=== PATIENT | male | born 1935 | race Caucasian/White ===

== ENCOUNTER → 2016-07-15 | Outpatient (CLI) | payer OTHER, MEDICARE | LOC: HYPER 06:58 | DX: R21 Rash and other nonspecific skin eruption (principal); I25.10 Atherosclerotic heart disease of native coronary artery without angina pectoris; I10 Essential (primary) hypertension; E78.00 Pure hypercholesterolemia, unspecified; R60.0 Localized edema; F15.90 Other stimulant use, unspecified, uncomplicated; Z72.89 Other problems related to lifestyle; Z95.1 Presence of aortocoronary bypass graft ==

== ENCOUNTER → 2016-11-05 | Outpatient (CLI) | payer OTHER, MEDICARE | LOC: HYPER 06:54 | DX: I87.332 Chronic venous hypertension (idiopathic) with ulcer and inflammation of left lower extremity (principal); L97.821 Non-pressure chronic ulcer of other part of left lower leg limited to breakdown of skin; R21 Rash and other nonspecific skin eruption; I25.10 Atherosclerotic heart disease of native coronary artery without angina pectoris; E78.00 Pure hypercholesterolemia, unspecified; Z95.1 Presence of aortocoronary bypass graft; Z72.89 Other problems related to lifestyle ==

== ENCOUNTER → 2016-11-24 | Outpatient (CLI) | payer OTHER, MEDICARE | LOC: HYPER 06:58 | DX: I87.332 Chronic venous hypertension (idiopathic) with ulcer and inflammation of left lower extremity (principal); L97.821 Non-pressure chronic ulcer of other part of left lower leg limited to breakdown of skin; I25.10 Atherosclerotic heart disease of native coronary artery without angina pectoris; E78.00 Pure hypercholesterolemia, unspecified; I70.248 Atherosclerosis of native arteries of left leg with ulceration of other part of lower leg; Z95.1 Presence of aortocoronary bypass graft; Z72.89 Other problems related to lifestyle ==

== ENCOUNTER → 2017-01-04 | Outpatient (CLI) | payer OTHER, MEDICARE | LOC: HYPER 12-23 07:26 | DX: I87.332 Chronic venous hypertension (idiopathic) with ulcer and inflammation of left lower extremity (principal); L97.821 Non-pressure chronic ulcer of other part of left lower leg limited to breakdown of skin; I25.10 Atherosclerotic heart disease of native coronary artery without angina pectoris; Z95.1 Presence of aortocoronary bypass graft; Z72.89 Other problems related to lifestyle ==

== ENCOUNTER → 2017-03-17 | Outpatient (CLI) | payer OTHER, MEDICARE | LOC: HYPER 03-03 15:41 | DX: L89.892 Pressure ulcer of other site, stage 2 (principal); I25.10 Atherosclerotic heart disease of native coronary artery without angina pectoris; I10 Essential (primary) hypertension; E78.00 Pure hypercholesterolemia, unspecified; R54 Age-related physical debility; Z95.1 Presence of aortocoronary bypass graft; Z72.89 Other problems related to lifestyle ==

== ENCOUNTER → 2017-06-15 | Outpatient (CLI) | payer OTHER, MEDICARE | LOC: HYPER 06:55 | DX: L97.821 Non-pressure chronic ulcer of other part of left lower leg limited to breakdown of skin (principal); L89.892 Pressure ulcer of other site, stage 2; I87.2 Venous insufficiency (chronic) (peripheral); I10 Essential (primary) hypertension; I25.10 Atherosclerotic heart disease of native coronary artery without angina pectoris; Z95.1 Presence of aortocoronary bypass graft ==

== ENCOUNTER → 2017-07-07 | Outpatient (CLI) | payer OTHER, MEDICARE | LOC: HYPER 06:45 | DX: I87.332 Chronic venous hypertension (idiopathic) with ulcer and inflammation of left lower extremity (principal); L97.821 Non-pressure chronic ulcer of other part of left lower leg limited to breakdown of skin; I70.249 Atherosclerosis of native arteries of left leg with ulceration of unspecified site; I25.10 Atherosclerotic heart disease of native coronary artery without angina pectoris; Z95.1 Presence of aortocoronary bypass graft ==

== ENCOUNTER → 2017-07-28 | Outpatient (CLI) | payer OTHER, MEDICARE | LOC: HYPER 06:47 | DX: I87.332 Chronic venous hypertension (idiopathic) with ulcer and inflammation of left lower extremity (principal); L97.821 Non-pressure chronic ulcer of other part of left lower leg limited to breakdown of skin; L89.151 Pressure ulcer of sacral region, stage 1; I10 Essential (primary) hypertension; I25.10 Atherosclerotic heart disease of native coronary artery without angina pectoris; Z95.1 Presence of aortocoronary bypass graft ==

== ENCOUNTER → 2017-08-18 | Outpatient (CLI) | payer OTHER, MEDICARE | LOC: HYPER 07:06 | DX: I87.332 Chronic venous hypertension (idiopathic) with ulcer and inflammation of left lower extremity (principal); L97.821 Non-pressure chronic ulcer of other part of left lower leg limited to breakdown of skin; L89.892 Pressure ulcer of other site, stage 2; I10 Essential (primary) hypertension; I25.10 Atherosclerotic heart disease of native coronary artery without angina pectoris; Z95.1 Presence of aortocoronary bypass graft ==

== ENCOUNTER → 2017-09-09 | Outpatient (CLI) | payer OTHER, MEDICARE | LOC: HYPER 07:07 | DX: I87.332 Chronic venous hypertension (idiopathic) with ulcer and inflammation of left lower extremity (principal); I70.248 Atherosclerosis of native arteries of left leg with ulceration of other part of lower leg; I25.10 Atherosclerotic heart disease of native coronary artery without angina pectoris; L97.821 Non-pressure chronic ulcer of other part of left lower leg limited to breakdown of skin; L89.892 Pressure ulcer of other site, stage 2; L89.322 Pressure ulcer of left buttock, stage 2; Z95.1 Presence of aortocoronary bypass graft ==

== ENCOUNTER → 2017-09-30 | Outpatient (CLI) | payer OTHER, MEDICARE | LOC: HYPER 06:34 | DX: L89.892 Pressure ulcer of other site, stage 2 (principal); I87.332 Chronic venous hypertension (idiopathic) with ulcer and inflammation of left lower extremity; L97.821 Non-pressure chronic ulcer of other part of left lower leg limited to breakdown of skin; I70.241 Atherosclerosis of native arteries of left leg with ulceration of thigh; R21 Rash and other nonspecific skin eruption; I25.10 Atherosclerotic heart disease of native coronary artery without angina pectoris; F32.9 Major depressive disorder, single episode, unspecified; Z95.1 Presence of aortocoronary bypass graft ==

== ENCOUNTER → 2017-12-15 | Outpatient (CLI) | payer OTHER, MEDICARE | LOC: HYPER 06:19 | DX: I87.332 Chronic venous hypertension (idiopathic) with ulcer and inflammation of left lower extremity (principal); I70.249 Atherosclerosis of native arteries of left leg with ulceration of unspecified site; L97.821 Non-pressure chronic ulcer of other part of left lower leg limited to breakdown of skin; L89.322 Pressure ulcer of left buttock, stage 2; L89.892 Pressure ulcer of other site, stage 2; I25.10 Atherosclerotic heart disease of native coronary artery without angina pectoris; I10 Essential (primary) hypertension; F32.9 Major depressive disorder, single episode, unspecified; Z95.1 Presence of aortocoronary bypass graft ==

== ENCOUNTER → 2017-12-30 | Outpatient (CLI) | payer OTHER, MEDICARE | LOC: HYPER 12-29 11:48 | DX: I87.332 Chronic venous hypertension (idiopathic) with ulcer and inflammation of left lower extremity (principal); L97.821 Non-pressure chronic ulcer of other part of left lower leg limited to breakdown of skin; I70.248 Atherosclerosis of native arteries of left leg with ulceration of other part of lower leg; I25.10 Atherosclerotic heart disease of native coronary artery without angina pectoris; F32.9 Major depressive disorder, single episode, unspecified; Z95.1 Presence of aortocoronary bypass graft ==

== ENCOUNTER 2021-04-03 18:50 | Inpatient (IN) | payer OTHER ==
[~2021-04-03] VITALS: Ht 182.9 cm; Wt 101.2 kg
--- NOTE | ~2021-04-03 | EMS ---
[facility] [address] [place] [address] EMS Patient Care Report Name: CHARISMA MONTOYA Room #: REG DAVID Jain#: [id number] Admission: 04/03/21 Attend Phys: Discharge: Date of : 35 Report #: [id number] THIS REPORT FOR: //name// Report Transmitted: 04/03/2021 18:44 EMS Care Summary [facility] Incident [id number] @ 04/03/2021 18:02 Incident Location [address] [place] [address] Patient CHARISMA MONTOYA Male, 85 Years 1935 Patient Address [address] [place] [address] Patient History Diabetes,Hypertension (HTN),Atrial Fibrillation, Patient Allergies No known allergies, Patient Medications Levothyroxine, Gabapentin, Amlodipine, Cyanocobalamin Co57, Apixaban, Lisinopril, Loperamide, Chief Complaint left arm pain Disposition Transported No Lights/[place] [facility] Reason Falls Transported To [facility] Narrative [id number] responded emergent to [facility] for a male pt who [address] [address] EMS Patient Care Report Name: CHARISMA MONTOYA Room #: REG DAVID Jain#: [id number] Admission: 04/03/21 Attend Phys: Discharge: Date of : 35 Report #: [id number] reportedly fell. [id number] arrived on scene to find the pt laying on his left side, yelling in pain. Pt was awake and alert. FD is on scene and attempting to assess pt and obtain vitals. Staff states pt pushed his call button, requesting help after falling. Staff states pt stated he had a ground level fall after losing his balance. Staff states pt was at happy hour earlier this evening and had a few alcoholic beverages. Pt confirms that he only lost his balance and denied weakness or dizziness as cause of the fall. Pt denies hitting his head or losing consciousness. Pt denies neck or back pain. Pt complains of isolated left arm pain. BP is unobtainable during initial assessment as pt was yelling and moving too much because of pain. Pt has good cap refill and a strong radial pulse. Fentanyl is administered IM as IV is unobtainable. Pt is then moved from floor to cot via scoop stretcher. BP is then obtained and scoop and is removed. Pt is secured to cot via 5 point seatbelt and moved to ambulance. Contact is made with [facility] prior to departure for acceptance of pt due to fall with blood thinners. Transport begins. Pt is more comfortable during transport. Pt to room 10, report given to RN and pt moved to bed via sheet without incident. Initial Vitals @18:41P: 76,SpO2: 96, @18:35P: 69,SpO2: 97, @18:38P: 87,R: 16,BP: 129/73,Pain: 8/10,GCS: 15,Temp: 97.2F,Glucose: 117,SpO2: 96,Revised Trauma: 12, @18:42P: 84,R: 14,BP: 137/75,GCS: 15,SpO2: 96,Revised Trauma: 12, @PTAP: 100,R: 14,Pain: 10/10,GCS: 15,SpO2: 97, @18:25P: 86,R: 14,BP: 134/86,GCS: 15,SpO2: 98,Revised Trauma: 12, Impression Injury of Shoulder or Upper Arm Procedures @18:41 Fentanyl - 100 Micrograms (mcg) - Intramuscular (IM) Response: Improved @PTASurgical Mask on Patient Response: Unchanged Timeline OPTHALMIC TECH,Surgical Mask on Patient,Response: Unchanged OPTHALMIC TECH,BP: / M,PULSE: 100,RR: 14 R,SPO2: 97 Ox,ETCO2: ,BG: ,PAIN: 10,GCS: 15, [address] [address] EMS Patient Care Report Name: CHARISMA MONTOYA Room #: CHANG Jain#: [id number] Admission: 04/03/21 Attend Phys: Discharge: Date of : 35 Report #: [id number] 18:00,Call Received 18:00,Psap Call 18:02,Dispatched 18:04,En Route 18:10,On Scene 18:12,At Patient 18:25,BP: 134/86 M,PULSE: 86,RR: 14 R,SPO2: 98 Ox,ETCO2: ,BG: ,PAIN: ,GCS: 15, 18:34,Depart Scene 18:35,BP: / M,PULSE: 69,RR: R,SPO2: 97 Ox,ETCO2: ,BG: ,PAIN: ,GCS: , 18:38,BP: 129/73 M,PULSE: 87,RR: 16 R,SPO2: 96 Ox,ETCO2: ,B,PAIN: 8,GCS: 15, 18:41,Fentanyl - 100 Micrograms (mcg) - Intramuscular (IM),Response: Improved 18:41,BP: / M,PULSE: 76,RR: R,SPO2: 96 Ox,ETCO2: ,BG: ,PAIN: ,GCS: , 18:42,BP: 137/75 M,PULSE: 84,RR: 14 R,SPO2: 96 Ox,ETCO2: ,BG: ,PAIN: ,GCS: 15, 18:44,At Destination 18:59,Call Closed Disclaimer v1.1 Copyright 2021 [facility] This EMS Care Summary contains data elements from the applicable legal record (which may be displayed differently). It is designed to provide pertinent information for the following purposes: continuity of care, clinical quality, and state data reporting. The complete legal record is available to ED staff and administrators of the receiving hospital in [employer]'s Patient Tracker. All data is provided "as is."
[2021-04-03 18:51] VITALS: BP 128/62
[2021-04-03] MEDS ORDERED: ELIQUIS2.5 MG PO (18:51)
[2021-04-04] VITALS (7 sets, daily range): BP systolic 150–193; BP diastolic 69–84
[2021-04-04 07:43] LABS: HEMATOCRIT 34.2 % (42.0-52.0); HEMOGLOBIN 11.1 gm/dL (14.0-18.0); MCH 32.9 pg (26.0-34.0); MCHC 32.6 g/dL (28.0-37.0); RBC 3.38 mil/uL (4.50-6.00); RDW 14.4 % (10.5-14.5); WBC 9.5 thou/uL (4.0-11.0)
[2021-04-04 07:55] LABS: CALCIUM 8.6 mg/dL (8.5-10.1); CREATININE 2.1 mg/dL (0.7-1.3); POTASSIUM 5.5 mmol/L (3.5-5.1)
--- NOTE | 2021-04-04 08:45 | NUR ---
ASSUMED PT CARE THIS AM. PT HAS L HIP & L HUMERUS FRACTURE DUE TO FALL. FINISHED ADMISSION ASSESSMENT THIS AM. PT IS ON ROOM AIR. PT C/O OF PAIN THIS AM. PT IS ACCUCHECK ACHS. RETURNED CALL FROM [facility] AND UPDATED PT SITUATION. PT IS CURRENTLY HAVING SURGERY THIS AM. PT HAS BEEN NPO. WILL CONTINUE TO MONITOR PT. FOLLOW POC.
[2021-04-04] MEDS ORDERED: ACETAMINOPHEN325 MG PO (16:03)
[2021-04-04] MEDS ORDERED: NORVASC 2.5 MG2.5 M1 PO (16:04)
[2021-04-04] MEDS ORDERED: ELIQUIS2.5 MG PO (16:05)
[2021-04-04] MEDS ORDERED: BETAMETHASONE D15 G4 TOP (16:06)
[2021-04-04] MEDS ORDERED: BISACODYL10 MG RECTAL (16:07)
[2021-04-04] MEDS ORDERED: CLOBETASOL PROP15 GM TOP (16:09)
[2021-04-04] MEDS ORDERED: VITAMIN B-121000 MC2 PO (16:09)
[2021-04-04] MEDS ORDERED: DULOXETINE HCL30 MG PO (16:10)
[2021-04-04] MEDS ORDERED: NORCO5 PO ×2 (16:11→16:12)
[2021-04-04] MEDS ORDERED: NEURONTIN300 MG PO (16:11)
[2021-04-04] MEDS ORDERED: LISINOPRIL10 MG PO (16:13)
[2021-04-04] MEDS ORDERED: LEVO-T100 MCG PO (16:13)
[2021-04-04] MEDS ORDERED: LOPERAMIDE2 MG PO (16:15)
[2021-04-04] MEDS ORDERED: SUPER THERAVIT1 EACH PO (16:16)
[2021-04-04] MEDS ORDERED: MILK OF MA400 MG/5 M PO (16:16)
--- NOTE | 2021-04-04 16:16 | NUR ---
Met with patient who reports [facility] lives at [facility] not [facility] skilled care. Patient fell and sustained humerus and hip fx. Patient reports he is in assisted living and in independent living. Patient reports he does not wear oxygen. Brief visit as patient returned to sx and in pain. Patient to be inpatient for weekend. 5N mariajose in process. casemgt following
[2021-04-04] MEDS ORDERED: MIRALAX119 GM PO (16:17)
[2021-04-04] MEDS ORDERED: OMEPRAZOLE 20 M20 M1 PO (16:17)
[2021-04-04] MEDS ORDERED: TRIAMCINOLONE A15 G3 TOP (16:18)
--- NOTE | 2021-04-05 03:21 | NUR ---
TOOK OVER CARE AT 0130. PT SLEEPING IN BED. BED ALARM PLACED. PALE SKIN TONE, QUIRINO BRUISED, RECENT FRACTURE, HAND WITH EDEMA. L HIP DRESSING DRY AND INTACT. BLE COOL, POSITIVE CIRCULATION PEDAL. O2 PER NC. PT REQUESTED PRN ORAL AND IV MEDS. PT STATED HE DOES NOT WANT TO REPOSITION.
[2021-04-05 05:42] LABS: CALCIUM 7.7 mg/dL (8.5-10.1); CREATININE 1.9 mg/dL (0.7-1.3); POTASSIUM 5.7 mmol/L (3.5-5.1)
[2021-04-05 05:43] LABS: HEMATOCRIT 27.6 % (42.0-52.0); MCH 33.6 pg (26.0-34.0); MCHC 32.9 g/dL (28.0-37.0); MCV 102.2 fL (80.0-100.0); RBC 2.7 mil/uL (4.50-6.00); RDW 14.2 % (10.5-14.5); WBC 9.5 thou/uL (4.0-11.0)
--- NOTE | 2021-04-05 05:48 | NUR ---
PT STATED HE DID NOT WANT TO BE REPOSITIONED TONGIHT BECAUSE IT CAUSES PAIN. DISCUSSED WITH PT THE IMPORTANCE OF REPOSITIONING AND GETTING OOB WHEN THERAPY HELPS HIM. PT HAS BEEN PROVIDED PRN MEDICATIONS.
[2021-04-05 06:04] LABS: HEMOGLOBIN 9.1 gm/dL (14.0-18.0)
[2021-04-05 07:22] VITALS: BP 148/56
[2021-04-05 08:11] LABS: GLYCOHEMOGLOBIN (HGB A1C) 5.1 % (4.8-5.6)
--- NOTE | 2021-04-05 09:01 | NUR ---
ASSUMED PT CARE THIS AM. GIVEN SCHEDULED MEDICATIONS WITHOUT DIFFICULTIES. PT HAS TELE MONITOR ON. PT HAS SUPRAPUBIC CATH IN PLACE. PT HAS IV SITE ON R WRIST SALINE LOCKED. PT C/O OF PAIN THIS AM AND RATED PAIN 10/10. GIVEN PAIN MEDICATION PER PT REQUEST. PT IS ON ROOM AIR. PT IS ACCUCHECK ACHS. PT ON THE BED, BED ON THE LOWEST POSITION, SIDE RAILS UP, CALL LIGHT WITHIN REACH. WILL CONTINUE TO MONITOR PT. FOLLOW POC.
[2021-04-05 11:15] VITALS: BP 163/61
[2021-04-05 19:16] VITALS: BP 149/67
--- NOTE | 2021-04-06 01:30 | NUR ---
PT IS A/O X4 WITH FORGETFULLNESS. UP WITH ASSISTANCE. DRSG TO HIP AND ARM ARE C/D/I. ICE PACK IN PLACE. PT C/O PAIN. PRN PAIN MEDICATION GIVEN DIRECTED. MEDICATIONS GIVEN PER MAR. FALL PRECAUTIONS IN PLACE, CALL LIGHT IS WITHIN REACH. SB ON THE MONITOR. 1 LITER 02 PER NC. PT CALLS OUT APPROPRIATELY FOR ASSISTANCE. RIVERA REMAINS IN PLACE. NO BM THIS SHIFT. PT IS PROGRESSING TOWARDS PLAN OF CARE DC GOALS.
[2021-04-06 06:06] LABS: ALBUMIN 2.5 g/dL (3.4-5.0); CALCIUM 7.7 mg/dL (8.5-10.1); CREATININE 1.8 mg/dL (0.7-1.3); PHOSPHORUS 3.1 mg/dL (2.5-4.9)
[2021-04-06 06:08] LABS: POTASSIUM 4.6 mmol/L (3.5-5.1)
[2021-04-06 07:00] VITALS: BP 144/81
[2021-04-06 11:34] VITALS: BP 157/80
[2021-04-06 16:00] VITALS: BP 174/89
--- NOTE | 2021-04-06 18:51 | NUR ---
patient resting in bed comfortably, patient is pleasant today, seen happy. sling place on left arm. Pain med given prn. Watching the game, call light within reach.
[2021-04-06 19:37] VITALS: BP 149/65
--- NOTE | 2021-04-07 01:56 | NUR ---
PT IS A/O X3-4 WITH FORGETFULLNESS. PT IS ANXIOUS THIS NOC AND C/O NOTICING HIS OWN CONFUSION. PT MADE MULTIPLE CALLS TO DAUGHTER THIS NOC. C/O PAIN TO LEFT ARM. PRN PAIN MEDICATION GIVEN DIRECTED. PT REQUESTED FOR OXYGEN WHILE SLEEPING. GIVEN FOR COMFORT AFTER C/O DIFFICULTY BREATHING. ALL MEDICATIONS GIVEN PER MAR. FALL PRECAUTIONS IN PLACE, CALL LIGHT IS WITHIN REACH. DRSG TO LEFT HIP C/D/I WITH NO DRAINAGE. ICE PACK IN PLACE. PT CALLS OUT APPROPRIATELY FOR ASSISTANCE.
[2021-04-07 07:30] VITALS: BP 181/82
--- NOTE | 2021-04-07 16:49 | NUR ---
Patient sleeping soundly. Left dtr message to call casemgt regarding skilled placement.
[2021-04-07 17:12] VITALS: BP 137/68
[2021-04-07 19:09] VITALS: BP 118/52
--- NOTE | 2021-04-08 04:23 | NUR ---
Pt. rested quietly during the night when checked on during frequent rounds. He was given po pain med (see emar) for c/o left shoulder pain with some relief noted. Left shoulder in a immobilzer. Dressing to left hip is intact. Pt. requested something for his allergy sx. Indu ANDRADE gave order for po claritin (see cpoe). Bed alarm is on.
[2021-04-08 05:43] VITALS: BP 155/82
[2021-04-08 08:00] VITALS: BP 122/62
[2021-04-08 10:07] LABS: HEMATOCRIT 24.5 % (42.0-52.0); HEMOGLOBIN 7.9 gm/dL (14.0-18.0); MCH 32.9 pg (26.0-34.0); MCHC 32.3 g/dL (28.0-37.0); MCV 101.8 fL (80.0-100.0); RBC 2.41 mil/uL (4.50-6.00); WBC 7.6 thou/uL (4.0-11.0)
[2021-04-08 10:48] LABS: ALBUMIN 2.2 g/dL (3.4-5.0); CALCIUM 7.7 mg/dL (8.5-10.1); CREATININE 1.8 mg/dL (0.7-1.3); PHOSPHORUS 2.8 mg/dL (2.5-4.9); POTASSIUM 4.3 mmol/L (3.5-5.1)
[2021-04-08 12:19] VITALS: BP 95/57
--- NOTE | 2021-04-08 12:32 | NUR ---
Spoke with patient and dtr at bedside. Reviewed post acute care stay and list of facilities. Referral to [facility] for review.
[2021-04-08 16:12] VITALS: BP 136/61
[2021-04-08 20:19] VITALS: BP 136/59
[2021-04-08 20:23] VITALS: BP 136/59
--- NOTE | 2021-04-08 23:52 | NUR ---
PT IS A/O X3 WITH FORGETFULNESS. VSS. AFEBRILE. C/O PAIN TO LEFT ARM AND LEFT HIP. PRN PAIN MEDICATION GIVEN PER MAR. DRSG TO LEFT ARM AND LEFT HIP ARE C/D/I. SLING REMAINS IN PLACE TO LEFT ARM FOR IMMOBILIZATION. ICEPACK IN PLACE TO LT ARM AND HIP. RIVERA IN PLACE DRAINING YELLOW URINE. FALL PRECAUTIONS IN PLACE, CALL LIGHT IS WITHIN REACH.
[2021-04-09 03:15] LABS: HEMATOCRIT 25.3 % (42.0-52.0); HEMOGLOBIN 8.5 gm/dL (14.0-18.0); MCH 34.2 pg (26.0-34.0); MCHC 33.4 g/dL (28.0-37.0); MCV 102.5 fL (80.0-100.0); RBC 2.47 mil/uL (4.50-6.00); RDW 14.1 % (10.5-14.5); WBC 7.9 thou/uL (4.0-11.0)
[2021-04-09 03:55] LABS: ALBUMIN 2.4 g/dL (3.4-5.0); CREATININE 1.8 mg/dL (0.7-1.3)
[2021-04-09 07:06] VITALS: BP 125/57
--- NOTE | 2021-04-09 11:29 | NUR ---
Patient accepted to [facility]. Bed avail Wednesday. Spoke with patient and dtr Shefali. They strongly prefer [facility]. They have had a bad experience with [facility] past. Dtr reports was at [facility] in 2019 when virus started. She reports they could not visit father and he could find his phone often. She reports when he returned to [facility] he needed to be from independent living to assisted she feels he nearly . She has heard good rehab regarding [facility] and wants her father to discharge to [facility]. Updated casemgt director of hold until bed avail.
[2021-04-09 11:35] VITALS: BP 128/57
[2021-04-09 15:42] VITALS: BP 136/54
[2021-04-09 19:00] VITALS: BP 130/64
--- NOTE | 2021-04-10 03:04 | NUR ---
PT C/O PAIN TO QUIRINO. PRN PAIN MEDICATION PROVIDED. VSS. MEDICATION GIVEN PER MAR. PT IS PROGRESSING TOWARDS PLAN OF CARE DC GOALS. FALL PRECAUTIONS IN PLACE, CALL LIGHT IS WITHIN REACH
[2021-04-10 05:05] VITALS: BP 129/66
[2021-04-10 07:18] VITALS: BP 126/60
--- NOTE | 2021-04-10 08:52 | NUR ---
Nutrition: screen for LOS. s/p fall with lt hip fx, lt humerus fx. Unavailable for interview this am. Recent intake noted to be around 50% at meals. No new wt since admit. BUN 44, Cr 1.8, albumin 2.4. BG 119-147. PEG, thiamine, docusate, insulin and other meds reviewed. Hx of HTN, DM, HLD noted. CM working on [facility], noted bed availalbe Wednesday. Will add Glucerna BID, rec encourage po intake. Assessed at mild nutrition risk.
--- NOTE | 2021-04-10 09:38 | NUR ---
ASSUMED CARE OF PATIENT THIS AM. RESTING IN BED WITH EYES CLOSED. ON ASSESSMENT HE IS RATING PAIN 8/10. HYRDROCODONE GIVEN WITH AM MEDS. PATIENT TOLERATED PO INTAKE AND MIRLAX DOSE. NO OTHER COMPLAINTS AT THIS TIME. WILL UPDATE IF EVENT OR CHANGE IN STATUS OCCURS.
[2021-04-10 11:48] VITALS: BP 136/65
[2021-04-10 15:18] VITALS: BP 142/67
--- NOTE | 2021-04-10 16:18 | NUR ---
[facility] accepting of patient for skilled care. They plan to transport patient at 11:00 in am. Notified jimmie smith RN, Dr Parikh, Dr Oquendo and dtr in [facility]. Requested chart copy.
--- NOTE | 2021-04-10 23:24 | NUR ---
TOOK OVER CARE NOW. PT RESTING IN BED. LUNGS DIMINISHED. BLE DRY. L HIP DRESSING DRY AND INTACT. BED ALARM ON. PT SLEEPING.
[2021-04-11 04:58] LABS: CALCIUM 7.9 mg/dL (8.5-10.1); CREATININE 1.7 mg/dL (0.7-1.3); MAGNESIUM 1.6 mg/dL (1.8-2.4); POTASSIUM 5.5 mmol/L (3.5-5.1)
[2021-04-11 05:16] LABS: HEMATOCRIT 26.5 % (42.0-52.0); HEMOGLOBIN 8.2 gm/dL (14.0-18.0); MCH 34.2 pg (26.0-34.0); MCHC 30.9 g/dL (28.0-37.0); RBC 2.4 mil/uL (4.50-6.00); RDW 15.5 % (10.5-14.5); WBC 7.9 thou/uL (4.0-11.0)
[2021-04-11 05:25] LABS: MCV 110.7 fL (80.0-100.0)
[2021-04-11 07:39] VITALS: BP 140/62
--- NOTE | 2021-04-11 11:09 | NUR ---
Dc cancelled due to potassium. Updateded patient, and dtr in law Latricia. She will alert rest of family. Arranged dc for Wednesday at 2pm [facility] transport. have faxed orders and placed in chart copy Wednesday04/12/21 [facility] [phone] call report [phone] fax orders
[2021-04-11 12:02] VITALS: BP 137/63
--- NOTE | 2021-04-11 14:56 | NUR ---
Assumed care of patient at shift change. Patient is A&Ox4 and makes needs known. Patient voices severe pain unrelieved by PRN pain medication. K+ high, patient had not passed BM prior to this day. Veltessa administered & repeat labs ordered. D/C scheduled for tomorrow at 1400. Appetite adequate & schmitz catheter output adequate. Besides pain, patient denies further needs. Fall precautions in place.
[2021-04-11 15:41] LABS: CREATININE 1.8 mg/dL (0.7-1.3); POTASSIUM 5.4 mmol/L (3.5-5.1)
[2021-04-11 16:17] VITALS: BP 141/66
--- NOTE | 2021-04-12 05:21 | NUR ---
NO ACUTE EVENTS THIS SHIFT. MEDS GIVEN PER ORDERS- NO BM THIS SHIFT. PAIN WELL CONTROLED WITH PRN MANAGEMENT. PT HAS BEEN RESTING ON AND OFF OVERNIGHT. SLING REAPPLIED AND PT EDUCATED ON PROPER ARM & BODY POSITIONING
[2021-04-12 06:01] LABS: HEMATOCRIT 24.8 % (42.0-52.0); HEMOGLOBIN 8.3 gm/dL (14.0-18.0); MCH 34.2 pg (26.0-34.0); MCHC 33.3 g/dL (28.0-37.0); RBC 2.42 mil/uL (4.50-6.00); RDW 14.3 % (10.5-14.5); WBC 7.9 thou/uL (4.0-11.0)
[2021-04-12 06:19] LABS: MCV 102.5 fL (80.0-100.0)
[2021-04-12 06:37] LABS: CALCIUM 8.3 mg/dL (8.5-10.1); CREATININE 1.8 mg/dL (0.7-1.3); MAGNESIUM 1.7 mg/dL (1.8-2.4); POTASSIUM 5.4 mmol/L (3.5-5.1)
[2021-04-12 07:10] VITALS: BP 146/67
[2021-04-12 08:37] VITALS: BP 146/67
--- NOTE | 2021-04-12 09:09 | NUR ---
"BILL", NO CODE, A/O X 3 SELF, PLACE, SITUATION, CAN BE FORGETFUL AT TIMES, BEDBOUND, RIGHT WRIST PIV SA;INE LOCKED, SUPRAPUBIC CATH, CONT OF BOWEL-BEDPAN, SINUS GAYLA ON TELE HR 58 BPM, LAST BM 04/10/21/ PAST CVA-LEFT SIDE RESIDUAL, POST LEFT HIP AND ARM NAILING-GAUZE DRY/CLEAN/INTACT, LEFT ARM IN SLING, HEPARIN GIVEN FOR DVT PPX, POTASSIUM HIGH 5.4, NORCO GIVEN PRN FOR PAIN, SET UP FOR MEALS.
--- NOTE | 2021-04-12 12:13 | NUR ---
PT DISCHARGING TO [facility] SPOKE WITH KINGA IN ADM SHE DID NOT RECEIVED DC ORDERS/SUMMARY SO REFAXED AND RECEIVED CONFIRMATION AND SHE HAD ARRANGED TRANSPORT FOR 1300 INSTEAD OF 1400 NOTIFIED UNIT OF THE CHANGE. FAMILY AWARE OF DC TODAY. CHART COPY PER US. RN TO CALL REPORT TO [phone].
== END 2021-04-12 13:12 | DRG 480 ==
LOC: ER 18:50 → 4S 22:33 → EROBS 22:33 → 4S 04-04 05:20
PROVIDERS: Anesthesiology; Hospitalist; Internal Medicine; Nurse Practitioner Family; Surgery; ADMIT Surgery; ATTEND Surgery
PROC: 0QS704Z Reposition Left Upper Femur with Internal Fixation Device, Open Approach (ICD-10-PCS; principal; 2021-04-04)
DX: S72.002A Fracture of unspecified part of neck of left femur, initial encounter for closed fracture (principal); E43 Unspecified severe protein-calorie malnutrition; S42.255A Nondisplaced fracture of greater tuberosity of left humerus, initial encounter for closed fracture; D62 Acute posthemorrhagic anemia; I13.0 Hypertensive heart and chronic kidney disease with heart failure and stage 1 through stage 4 chronic kidney disease, or unspecified chronic kidney disease; N17.9 Acute kidney failure, unspecified; K56.7 Ileus, unspecified; E87.5 Hyperkalemia; Z20.822 Contact with and (suspected) exposure to COVID-19; W18.39XA Other fall on same level, initial encounter; Y93.89 Activity, other specified; Y92.89 Other specified places as the place of occurrence of the external cause; Y99.8 Other external cause status; K21.9 Gastro-esophageal reflux disease without esophagitis; N40.0 Benign prostatic hyperplasia without lower urinary tract symptoms; E03.9 Hypothyroidism, unspecified; E11.51 Type 2 diabetes mellitus with diabetic peripheral angiopathy without gangrene; Z79.4 Long term (current) use of insulin; F32.A Depression, unspecified; E11.65 Type 2 diabetes mellitus with hyperglycemia; E11.22 Type 2 diabetes mellitus with diabetic chronic kidney disease; N18.9 Chronic kidney disease, unspecified; I50.9 Heart failure, unspecified; Z88.8 Allergy status to other drugs, medicaments and biological substances; Z86.14 Personal history of Methicillin resistant Staphylococcus aureus infection; K59.00 Constipation, unspecified; Z68.30 Body mass index [BMI] 30.0-30.9, adult
CPT/HCPCS: 10100; 50010; 50101; 50386; 50455; 51412; 51538; 52304; 53400; 53402; 53404; 56524; 57092; 62110; 62900; 70005